=== PATIENT | male | born 1990 | race Caucasian/White ===

== ENCOUNTER 2017-10-31 05:55 | Emergency (ER) | payer SELFPAY ==
[2017-10-31] MEDS ORDERED: NA CHLORIDE 0.9% 1,000 ML ONE (06:29)
[2017-10-31 06:53] LABS: Bicarbonate 24 mEq/L (21-31); Glucose Level 102 mg/dL (65-120); Lipase 21 U/L (22-51); Potassium 4.4 mEq/L (3.6-5.0); Sodium Level 138 mEq/L (135-145)
[2017-10-31 06:55] LABS: Absolute Lymphocytes (CBC) 0.8 K/uL (0.7-4.9); Absolute Monocytes 1.2 K/uL (0.1-1.3); Absolute Neutrophil 15.7 K/uL (1.8-8.0); Basophils % 0.2 % (0-1.3); Eosinophils % 0.8 % (0-4.4); Hematocrit 49.5 % (39.6-49.0); Lymphocytes % 4.3 % (15.3-44.8); MCV 89.2 fL (80-100); MPV 8.2 fL (7.6-11.3); Monocytes % 6.9 % (3.3-12.3); RBC Red Blood Cell Count 5.54 M/uL (4.33-5.43)
[2017-10-31 06:59] LABS: ALT/SGPT 53 IU/L (10-60); AST/SGOT 33 IU/L (10-42); Albumin 4.7 g/dL (3.2-5.5); Alkaline Phosphatase 64 IU/L (42-121); BUN Blood Urea Nitrogen 16 mg/dL (6-20); Bilirubin Direct 0.1 mg/dL (0-0.2); Bilirubin Total 0.6 mg/dL (0.3-1.2)
--- NOTE | 2017-10-31 07:53 | RAD REPORT ---
AND EXAM DESCRIPTION: CT - Abdomen Pelvis W Contrast - 10/31/2017 7:31 am CLINICAL HISTORY: Abdominal pain with with vomiting for 1 week COMPARISON: 2014 TECHNIQUE: Computed axial tomography of the abdomen pelvis was obtained. 100 cc Isovue-300 was admin istered intravenously. Oral contrast was not requested which limits evaluation of bowel. All CT scans are performed using dose optimization technique as appropriate and may include automated exposure control or mA/KV adjustment according to patient size. FINDINGS: The liver, spleen, pancreas, adrenal and kidneys appear unremarkable. There is no evidence of diverticulitis. The appendix is normal. A right inguinal hernia contains fat Fluid is present within nondilated small bowel. The. A tiny umbilical hernia is suspected IMPRESSION: Fluid within nondilated small bowel may indicate an enteritis
[2017-10-31] MEDS ORDERED: DICYCLOMINE HCL 10 MG CAP ONE (08:12)
[2017-10-31] MEDS ORDERED: ONDANSETRON 4 MG/2 ML VIAL ONE (08:13)
--- NOTE | 2017-10-31 08:33 | EDPHYS ---
Physician Documentation [facility] Name: Piotr Guerrero Age: 26 yrs Sex: Male : 1990 Arrival Date: 10/31/2017 Time: 06:00 Bed 8 Private MD: ED Physician Clark Wynne HPI: 10/31 07:00 This 26 yrs old Male presents to ER via Ambulatory with complaints of pm1 Abdominal Pain and diarrhea. 07:00 The patient presents with abdominal pain. Onset: The symptoms/episode began/occurred pm1 today. 07:00 The symptoms do not radiate. Associated signs and symptoms: Pertinent positives: pm1 diarrhea, Pertinent negatives: chest pain, dysuria, fever, shortness of breath. The symptoms are described as crampy. Modifying factors: The symptoms are alleviated by nothing, the symptoms are aggravated by nothing. Severity of pain: in the emergency department the pain has improved. The patient has not experienced similar symptoms in the past. The patient has not recently seen a physician. Patient with nausea and vomiting 1 week ago after going to [employer] at friends house. Children got vomiting for 1 day. Patient fine until today and started having crampy abdominal pain with diarrhea x 1. Historical: - Allergies: 06:11 No Known Allergies; ao - Home Meds: 06:11 None [Active]; ao - PMHx: 06:11 None; ao - PSHx: 06:11 None; ao - Immunization history:: Adult Immunizations up to date. - Social history:: Smoking status: Patient uses tobacco products, smokes one-half pack cigarettes per day, Patient uses alcohol, occasionally. Patient/guardian denies using street drugs. - Ebola Screening: : Patient negative for fever greater than or equal to 101.5 degrees Fahrenheit, and additional compatible Ebola Virus Disease symptoms Patient denies exposure to infectious person Patient denies travel to an Ebola-affected area in the 21 days before illness onset. ROS: 07:00 Constitutional: Negative for fever, chills, and weight loss, Eyes: Negative for injury, pm1 pain, redness, and discharge, ENT: Negative for injury, pain, and discharge, Neck: Negative for injury, pain, and swelling, Cardiovascular: Negative for chest pain, palpitations, and edema, Respiratory: Negative for shortness of breath, cough, wheezing, and pleuritic chest pain. 07:00 Back: Negative for injury and pain, MS/Extremity: Negative for injury and deformity, Skin: Negative for injury, rash, and discoloration, Neuro: Negative for headache, weakness, numbness, tingling, and seizure. 07:00 Abdomen/GI: Positive for abdominal pain, diarrhea, Negative for nausea and vomiting. Exam: 07:00 Constitutional: This is a well developed, well nourished patient who is awake, alert, pm1 and in no acute distress. Head/Face: Normocephalic, atraumatic. Chest/axilla: Normal chest wall appearance and motion. Nontender with no deformity. No lesions are appreciated. Cardiovascular: Regular rate and rhythm with a normal S1 and S2. No gallops, murmurs, or rubs. Normal PMI, no JVD. No pulse deficits. Respiratory: Lungs have equal breath sounds bilaterally, clear to auscultation and percussion. No rales, rhonchi or wheezes noted. No increased work of breathing, no retractions or nasal flaring. 07:00 Back: No spinal tenderness. No costovertebral tenderness. Full range of motion. Skin: Warm, dry with normal turgor. Normal color with no rashes, no lesions, and no evidence of cellulitis. MS/ Extremity: Pulses equal, no cyanosis. Neurovascular intact. Full, normal range of motion. 07:00 Abdomen/GI: Inspection: abdomen appears normal, Bowel sounds: normal, Palpation: abdomen is soft and non-tender, mass, is not appreciated, rebound tenderness, is not appreciated. 07:00 Neuro: Orientation: is normal, Motor: is normal, moves all fours. Vital Signs: 06:10 BP 129 / 71; Pulse 102; Resp 18; Temp 98.1(TE); Pulse Ox 97% on R/A; Weight 129.27 kg ao (R); Height 6 ft. 3 in. (190.50 cm) (R); Pain 3/10; 07:05 BP 128 / 71; Pulse 72; Resp 18; Pulse Ox 100% ; sv 08:27 BP 154 / 75; Pulse 85; Resp 18; Pulse Ox 97% on R/A; ph 08:46 BP 136 / 73; Pulse 82; Resp 18; Pulse Ox 100% ; sv 06:10 Body Mass Index 35.62 (129.27 kg, 190.50 cm) ao MDM: 06:11 Patient medically screened. pm1 07:30 ED course: Patient refuses pain medication. pm1 08:31 Data reviewed: vital signs. Data interpreted: Pulse oximetry: on room air is 97 %. pm1 Interpretation: normal. Counseling: I had a detailed discussion with the patient and/or guardian regarding: the historical points, exam findings, and any diagnostic results supporting the discharge/admit diagnosis, lab results, radiology results, the need for outpatient follow up, to return to the emergency department if symptoms worsen or persist or if there are any questions or concerns that arise at home. 10/31 06:25 Order name: Basic Metabolic Panel; Complete Time: 07:08 pm1 10/31 06:25 Order name: CBC with Diff pm10/31 06:25 Order name: Creatinine for Radiology; Complete Time: 06:53 pm1 10/31 06:25 Order name: Hepatic Function; Complete Time: 07:08 pm10/31 06:25 Order name: Lipase; Complete Time: 07:08 pm1 10/31 06:25 Order name: Urine Microscopic Only pm10/31 06:25 Order name: IV Saline Lock; Complete Time: 06:32 pm10/31 06:25 Order name: Labs collected and sent; Complete Time: 06:32 pm10/31 06:25 Order name: Urine Dipstick-Ancillary (obtain specimen); Complete Time: 08:21 pm10/31 07:11 Order name: CT Abd/Pelvis - W/Contrast: IV contrast only; Complete Time: 07:54 pm1 10/31 08:38 Order name: Urine Dipstick--Ancillary (enter results) ag Administered Medications: 06:32 Drug: NS 0.9% 1000 ml Route: IV; Rate: 1000 ml; Site: right antecubital; mg2 08:22 Follow up: Response: No adverse reaction; IV Status: Completed infusion; IV Intake: ph 1000ml 08:21 Drug: Zofran 4 mg Route: IVP; Site: right antecubital; ph 08:49 Follow up: Response: No adverse reaction sv 08:21 Drug: Bentyl 20 mg Route: PO; ph 08:48 Follow up: Response: No adverse reaction sv Disposition: 19:41 Co-signature as Attending Physician, Clark Wynne MD. pkl Disposition: 10/31/17 08:33 Discharged to Home. Impression: Diarrhea, unspecified, Unspecified abdominal pain. - Condition is Stable. - Discharge Instructions: Abdominal Pain, Adult, Food Choices to Help Relieve Diarrhea, Adult, Diarrhea, Viral Gastroenteritis. - Prescriptions for Bentyl 20 mg Oral Tablet - take 1 tablet by ORAL route every 6 hours As needed; 20 tablet. Zofran 4 mg Oral Tablet - take 1 tablet by ORAL route every 12 hours As needed; 20 tablet. - Work release form, Medication Reconciliation Form, Thank You Letter, Antibiotic Education form. - Follow up: Emergency Department; When: As needed; Reason: Worsening of condition. Follow up: Private Physician; When: 2 - 3 days; Reason: Recheck today's complaints, Continuance of care, Re-evaluation by your physician. - Problem is new. - Symptoms have improved. Signatures: Dispatcher [employer] Moira Herr RN RN sv Lam, Pin, MD MD pkl Debra Pierce RN RN Rich Briceño RN Gera Birch NP ADVANCE AGENT pm1 Orville Holliday RN RN mg2 Corrections: (The following items were deleted from the chart) 08:47 08:33 10/31/2017 08:33 Discharged to Home. Impression: Diarrhea, unspecified; sv Unspecified abdominal pain. Condition is Stable. Forms are Medication Reconciliation Form, Thank You Letter, Antibiotic Education, Prescription Opioid Use. Follow up: Emergency Department; When: As needed; Reason: Worsening of condition. Follow up: Private Physician; When: 2 - 3 days; Reason: Recheck today's complaints, Continuance of care, Re-evaluation by your physician. Problem is new. Symptoms have improved. pm1
--- NOTE | 2017-10-31 08:33 | ER ---
Nurse's Notes [facility] Name: Piotr Guerrero Age: 26 yrs Sex: Male : 1990 Arrival Date: 10/31/2017 Time: 06:00 Bed 8 Private MD: Diagnosis: Diarrhea, unspecified;Unspecified abdominal pain Presentation: 10/31 06:07 Presenting complaint: Patient states: "I was vomiting and with abdominal pain a week ao ago. The problem resolved and came back on Monday. I had vomited about three time since then." Patient also reports diarrhea and chill this morning. Transition of care: patient was not received from another setting of care. Onset of symptoms is unknown. Risk Assessment: Do you want to hurt yourself or someone else? Patient reports no desire to harm self or others. Initial Sepsis Screen: Does the patient meet any 2 criteria? No. Patient's initial sepsis screen is negative. Does the patient have a suspected source of infection? No. Patient's initial sepsis screen is negative. Care prior to arrival: None. 06:07 Method Of Arrival: Ambulatory ao 06:07 Acuity: DRE 3 ao Triage Assessment: 06:11 General: Appears in no apparent distress. Behavior is calm, cooperative, appropriate ao for age. Pain: Complains of pain in abdomen. GI: Abdomen is non-distended. Historical: - Allergies: 06:11 No Known Allergies; ao - Home Meds: 06:11 None [Active]; ao - PMHx: 06:11 None; ao - PSHx: 06:11 None; ao - Immunization history:: Adult Immunizations up to date. - Social history:: Smoking status: Patient uses tobacco products, smokes one-half pack cigarettes per day, Patient uses alcohol, occasionally. Patient/guardian denies using street drugs. - Ebola Screening: : Patient negative for fever greater than or equal to 101.5 degrees Fahrenheit, and additional compatible Ebola Virus Disease symptoms Patient denies exposure to infectious person Patient denies travel to an Ebola-affected area in the 21 days before illness onset. Screenin:08 Abuse screen: Denies threats or abuse. Denies injuries from another. Nutritional mg2 screening: No deficits noted. Tuberculosis screening: No symptoms or risk factors identified. Fall Risk None identified. Assessment: 06:13 General: Appears in no apparent distress. comfortable. Pain: Complains of pain in mg2 abdomen Pain does not radiate. Pain currently is 3 out of 10 on a pain scale. Quality of pain is described as aching, Pain began this morning Is intermittent, Also complains of diarrhea. Neuro: Level of Consciousness is awake, alert, obeys commands, Oriented to person, place, time, situation. Cardiovascular: Capillary refill < 3 seconds Patient's skin is warm and dry. Respiratory: Airway is patent Respiratory effort is even, unlabored, Respiratory pattern is regular, symmetrical. GI: Reports lower abdominal pain, diarrhea. : No signs and/or symptoms were reported regarding the genitourinary system. EENT: No signs and/or symptoms were reported regarding the EENT system. Derm: Skin is intact, Skin is pink, warm \\T\\ dry. normal. Musculoskeletal: Circulation, motion, and sensation intact. 06:14 GI: ao 08:22 Reassessment: Patient appears in no apparent distress at this time. Patient and/or ph family updated on plan of care and expected duration. Pain level reassessed. Patient is alert, oriented x 3, equal unlabored respirations, skin warm/dry/pink. Pt resting quietly, reports nausea and abdominal pain, medication administered, see MAR, VSS, awaiting CT results. Vital Signs: 06:10 BP 129 / 71; Pulse 102; Resp 18; Temp 98.1(TE); Pulse Ox 97% on R/A; Weight 129.27 kg ao (R); Height 6 ft. 3 in. (190.50 cm) (R); Pain 3/10; 07:05 BP 128 / 71; Pulse 72; Resp 18; Pulse Ox 100% ; sv 08:27 BP 154 / 75; Pulse 85; Resp 18; Pulse Ox 97% on R/A; ph 08:46 BP 136 / 73; Pulse 82; Resp 18; Pulse Ox 100% ; sv 06:10 Body Mass Index 35.62 (129.27 kg, 190.50 cm) ao ED Course: 06:00 Patient arrived in ED. es 06:08 Orville Holliday, TE is Primary Nurse. mg2 06:08 Patient has correct armband on for positive identification. Pulse ox on. NIBP on. Noise mg2 minimized. 06:09 Gera Fisher NP is PHCP. pm1 06:09 Clark Wynne MD is Attending Physician. pm1 06:10 Triage completed. ao 06:12 Arm band placed on Patient notified of wait time. ao 06:31 Inserted saline lock: 20 gauge in right antecubital area, using aseptic technique. mg2 Blood collected. 07:32 CT Abd/Pelvis - W/Contrast: IV contrast only In Process Unspecified. EDMS 08:47 No provider procedures requiring assistance completed. IV discontinued, intact, sv bleeding controlled, No redness/swelling at site. Pressure dressing applied. Administered Medications: 06:32 Drug: NS 0.9% 1000 ml Route: IV; Rate: 1000 ml; Site: right antecubital; mg2 08:22 Follow up: Response: No adverse reaction; IV Status: Completed infusion; IV Intake: ph 1000ml 08:21 Drug: Zofran 4 mg Route: IVP; Site: right antecubital; ph 08:49 Follow up: Response: No adverse reaction sv 08:21 Drug: Bentyl 20 mg Route: PO; ph 08:48 Follow up: Response: No adverse reaction sv Intake: 08:22 IV: 1000ml; Total: 1000ml. ph Outcome: 08:33 Discharge ordered by . pm1 08:47 Discharged to home ambulatory. sv 08:47 Condition: stable 08:47 Discharge instructions given to patient, Instructed on discharge instructions, follow up and referral plans. medication usage, Demonstrated understanding of instructions, follow-up care, medications, Prescriptions given X 2. 08:47 Patient left the ED. sv Signatures: Dispatcher [employer] EDMoira Martinez RN RN sv Salyer, Edna es Hall, Patricia, RN RN Rich Briceño RN RN ao Marinas, Patrick, NP WORK CHECKER pm1 Orville Holilday RN RN mg2
[2017-10-31 08:51] VITALS: TEMP 98.1
[2017-10-31 08:54] LABS: Blood Morphology Comment NOT SEEN (NOT SEEN); Platelet Estimate ADEQ
[2017-10-31 08:55] VITALS: BP 136/73; O2SAT 100
[2017-10-31 10:08] LABS: Urine Blood TRACE (NEG); Urine Glucose NEGATIVE (NEG); Urine Protein NEGATIVE (NEG); Urine pH 5.5 (5.0-7.0)
[2017-10-31 10:10] LABS: Urine Bacteria <20 /HPF (NONE SEEN); Urine Culture Reflex Order NOT NEEDED; Urine RBC <5 /HPF (NONE SEEN)
== END 2017-10-31 08:47 | disposition home or self-care (01) ==
LOC: ER 05:55
DX: R19.7 Diarrhea, unspecified (principal); F17.210 Nicotine dependence, cigarettes, uncomplicated
CPT/HCPCS: 36415; 74177; 80048; 80076; 81003; 81015; 83690; 85025; 96361; 96374; 99284; J2405; J7030; Q9967

== ENCOUNTER 2019-02-28 07:26 | Emergency (ER) | payer SELFPAY ==
--- NOTE | 2019-02-28 08:11 | ER ---
Nurse's Notes [facility] Name: Piotr Guerrero Age: 28 yrs Sex: Male : 1990 Arrival Date: 02/28/2019 Time: 07:28 Bed 14 Private MD: Diagnosis: Encounter for screening, unspecified Presentation: 02/28 07:39 Presenting complaint: Patient states: Chronic back pain after injury in high school. ss Patient reports that they back pain became worse yesterday. Transition of care: patient was not received from another setting of care. Onset of symptoms was February 27, 2019. Risk Assessment: Do you want to hurt yourself or someone else? Patient reports no desire to harm self or others. Initial Sepsis Screen: Does the patient meet any 2 criteria? No. Patient's initial sepsis screen is negative. Does the patient have a suspected source of infection? No. Patient's initial sepsis screen is negative. Care prior to arrival: None. 07:39 Acuity: DRE 4 07:39 Method Of Arrival: Ambulatory ss Historical: - Allergies: 07:41 No Known Allergies; ss - Home Meds: 07:41 None [Active]; ss - PMHx: 07:41 chronic back pain; ss 08:08 Hypertension; gs - PSHx: 07:41 None; ss - Immunization history:: Adult Immunizations up to date. - Social history:: Smoking status: Patient uses tobacco products, chewing tobacco. - Ebola Screening: : Patient denies exposure to infectious person Patient denies travel to an Ebola-affected area in the 21 days before illness onset. Screenin:45 Abuse screen: Denies threats or abuse. Nutritional screening: No deficits noted. rb1 Tuberculosis screening: No symptoms or risk factors identified. Fall Risk None identified. Assessment: 07:45 General: Appears uncomfortable, Behavior is calm, cooperative. Pain: Complains of pain rb1 in left low back Pain does not radiate. Pain currently is 10 out of 10 on a pain scale. Pain began chronic pain from a football injury in high school. Neuro: Level of Consciousness is awake, alert, obeys commands, Oriented to person, place, time, situation. Cardiovascular: Capillary refill < 3 seconds is brisk in bilateral fingers. Respiratory: Airway is patent Respiratory effort is even, unlabored, Respiratory pattern is regular, symmetrical. GI: No signs and/or symptoms were reported involving the gastrointestinal system. : No signs and/or symptoms were reported regarding the genitourinary system. Derm: Skin is pink, warm \T\ dry. Musculoskeletal: Range of motion: intact in all extremities. Vital Signs: 07:38 BP 138 / 77; Pulse 79; Resp 14; Temp 98.4(TE); Pulse Ox 100% on R/A; Weight 104.33 kg; Height 6 ft. 3 in. (190.50 cm); Pain 5/10; 07:38 Body Mass Index 28.75 (104.33 kg, 190.50 cm) ED Course: 07:28 Patient arrived in ED. as 07:37 Seth Phelps MD is Attending Physician. 07:38 Arm band placed on right wrist. 07:40 Triage completed. 07:45 Patient has correct armband on for positive identification. Bed in low position. Call rb1 light in reach. Side rails up X 1. Pulse ox on. NIBP on. 08:01 Evie Chilel RN is Primary Nurse. rb1 08:06 No provider procedures requiring assistance completed. Patient did not have IV access rb1 during this emergency room visit. Administered Medications: No medications were administered Outcome: 08:06 Medical screen evaluation completed per provider. Patient declined treatment. rb1 08:06 Condition: stable 08:06 Instructed on medical screen 08:09 Discharge ordered by . 08:12 Patient left the ED. rb1 Signatures: Aster Gallo Shelby, RN RN Evie Chilel RN RN [facility] Seth Phelps MD MD
--- NOTE | 2019-02-28 08:11 | EDPHYS ---
Physician Documentation [facility] Name: Piotr Guerrero Age: 28 yrs Sex: Male : 1990 Arrival Date: 02/28/2019 Time: 07:28 Bed 14 Private MD: ED Physician Seth Phelps HPI: 02/28 08:07 This 28 yrs old Male presents to ER via Ambulatory with complaints of Back gs Pain. 08:07 The patient presents with pain that is acute. The symptoms are located in the low back. gs Onset: The symptoms/episode began/occurred 1 week(s) ago. The pain does not radiate. Associated signs and symptoms: Pertinent negatives: dysuria, incontinence, numbness, tingling, urinary retention. Severity of symptoms: At their worst the symptoms were moderate, in the emergency department the symptoms are unchanged. The patient has experienced similar episodes in the past, multiple times. Historical: - Allergies: 07:41 No Known Allergies; ss - Home Meds: 07:41 None [Active]; ss - PMHx: 07:41 chronic back pain; ss 08:08 Hypertension; gs - PSHx: 07:41 None; ss - Immunization history:: Adult Immunizations up to date. - Social history:: Smoking status: Patient uses tobacco products, chewing tobacco. - Ebola Screening: : Patient denies exposure to infectious person Patient denies travel to an Ebola-affected area in the 21 days before illness onset. ROS: 08:08 All other systems are negative. gs Exam: 08:08 Head/Face: Normocephalic, atraumatic. Eyes: Pupils equal round and reactive to light, gs extra-ocular motions intact. Lids and lashes normal. Conjunctiva and sclera are non-icteric and not injected. Cornea within normal limits. Periorbital areas with no swelling, redness, or edema. ENT: Nares patent. No nasal discharge, no septal abnormalities noted. Tympanic membranes are normal and external auditory canals are clear. Oropharynx with no redness, swelling, or masses, exudates, or evidence of obstruction, uvula midline. Mucous membranes moist. Neck: Trachea midline, no thyromegaly or masses palpated, and no cervical lymphadenopathy. Supple, full range of motion without nuchal rigidity, or vertebral point tenderness. No Meningismus. Chest/axilla: Normal chest wall appearance and motion. Nontender with no deformity. No lesions are appreciated. Cardiovascular: Regular rate and rhythm with a normal S1 and S2. No gallops, murmurs, or rubs. Normal PMI, no JVD. No pulse deficits. Respiratory: Lungs have equal breath sounds bilaterally, clear to auscultation and percussion. No rales, rhonchi or wheezes noted. No increased work of breathing, no retractions or nasal flaring. Abdomen/GI: Soft, non-tender, with normal bowel sounds. No distension or tympany. No guarding or rebound. No evidence of tenderness throughout. Back: No spinal tenderness. No costovertebral tenderness. Full range of motion. Skin: Warm, dry with normal turgor. Normal color with no rashes, no lesions, and no evidence of cellulitis. MS/ Extremity: Pulses equal, no cyanosis. Neurovascular intact. Full, normal range of motion. 08:08 Constitutional: The patient appears alert, awake. 08:08 Neuro: Orientation: is normal, Cranial nerves: grossly normal, Cerebellar function: is grossly normal, Motor: no acute changes, strength is 5/5 in all extremities, Sensation: pin prick testing is normal, Deep tendon reflexes are 2+ (normal) in the right patellar and left patellar. Vital Signs: 07:38 BP 138 / 77; Pulse 79; Resp 14; Temp 98.4(TE); Pulse Ox 100% on R/A; Weight 104.33 kg; ss Height 6 ft. 3 in. (190.50 cm); Pain 5/10; 07:38 Body Mass Index 28.75 (104.33 kg, 190.50 cm) MDM: 08:04 Patient medically screened. 08:08 Differential diagnosis: Joint Injury Ligament Injury ruptured disc. Data reviewed: vital signs, nurses notes. Counseling: I had a detailed discussion with the patient and/or guardian regarding: the need for outpatient follow up. Response to treatment: There is no appreciated change of the patient's symptoms at this time. Administered Medications: No medications were administered Disposition: 02/28/19 08:09 Discharged to Home. Impression: Encounter for screening, unspecified. - Condition is Stable. - Medication Reconciliation Form, Thank You Letter, Antibiotic Education, Prescription Opioid Use form. Signatures: Sabina Bonner, RN RN ss Evie Chilel, RN RN rb1 Seth Phelps MD MD gs Corrections: (The following items were deleted from the chart) 08:12 08:09 02/28/2019 08:09 Discharged to Home. Impression: Encounter for screening, rb1 unspecified. Condition is Stable. Forms are Medication Reconciliation Form, Thank You Letter, Antibiotic Education, Prescription Opioid Use. gs
[2019-02-28 08:18] VITALS: BP 138/77; TEMP 98.4; O2SAT 100
== END 2019-02-28 08:12 | disposition home or self-care (01) ==
LOC: ER 07:26
DX: Z13.9 Encounter for screening, unspecified (principal); I10 Essential (primary) hypertension; F17.220 Nicotine dependence, chewing tobacco, uncomplicated
CPT/HCPCS: 99283

== ENCOUNTER 2019-07-08 18:48 | Emergency (ER) | payer SELFPAY ==
[2019-07-08 20:15] LABS: Urine Blood NEGATIVE (NEG); Urine Glucose NEGATIVE (NEG); Urine Protein NEGATIVE (NEG); Urine Specific Gravity 1.025 (1.005-1.030)
--- NOTE | 2019-07-08 20:24 | RAD REPORT ---
EXAM DESCRIPTION: CT - Abdomen Pelvis Wo Contrast - 07/08/2019 8:12 pm CLINICAL HISTORY: Abdominal pain. KIDNEY STONES COMPARISON: Abdomen Pelvis W Contrast dated 10/31/2017 TECHNIQUE: CT imaging of the abdomen and pelvis was performed without contrast. Solid organ, bowel a nd vascular assessment is limited due to lack of IV and oral contrast. All CT scans are performed using dose optimization technique as appropriate and may include automated exposure control or mA/KV adjustment according to patient size. FINDINGS: The lower lung art are clear. The liver, spleen, pancreas, adrenal glands and kidneys are within normal limits for a limited non-co ntrast examination. No bowel obstruction, free air, free fluid or abscess. The appendix is normal. The osseous structures are within normal limits.Small fat containing right inguinal hernia. IMPRESSION: No acute intra-abdominal or pelvic findings. A limited non-contrast examination was performed as detailed.
[2019-07-08 20:33] LABS: Absolute Lymphocytes (CBC) 2.9 K/uL (0.7-4.9); Basophils % 0.3 % (0-1.3); Lymphocytes % 29.2 % (15.3-44.8); MPV 7.7 fL (7.6-11.3); RBC Red Blood Cell Count 4.93 M/uL (4.33-5.43)
[2019-07-08 20:47] LABS: ALT/SGPT 31 U/L (12-78); AST/SGOT 18 U/L (15-37); Albumin 4.3 g/dL (3.4-5.0); Alkaline Phosphatase 63 U/L (45-117); BUN Blood Urea Nitrogen 14 mg/dL (7-18); Bicarbonate 29 mmol/L (21-32); Bilirubin Direct 0.1 mg/dL (0-0.2); Bilirubin Total 0.4 mg/dL (0.2-1.0); Glucose Level 87 mg/dL (74-106); Lipase 70 U/L (73-393); Potassium 3.9 mmol/L (3.5-5.1); Protein, Total 7.8 g/dL (6.4-8.2); Sodium Level 142 mmol/L (136-145)
--- NOTE | 2019-07-08 21:09 | EDPHYS ---
Physician Documentation [facility] Name: Piotr Guerrero Age: 28 yrs Sex: Male : 1990 Arrival Date: 07/08/2019 Time: 18:50 Bed 30 Private MD: ED Physician Juliano Dunham HPI: 07/08 21:06 This 28 yrs old Male presents to ER via Ambulatory with complaints of Hip ma2 Pain, Side Pain. 21:06 left flank pain, he does not want pain rx in er . The complaints affect the back. ma2 Associated signs and symptoms: Pertinent negatives: altered mental status, chest pain, fever, nausea. Severity of symptoms: At their worst the symptoms were very mild, in the emergency department the symptoms are unchanged. The patient has not experienced similar symptoms in the past. Historical: - Home Meds: 19:07 None [Active]; ea - PMHx: 19:07 chronic back pain; Hypertension; ea - PSHx: 19:07 Tonsillectomy; ea - Immunization history:: Adult Immunizations up to date. - Coronavirus screen:: The patient has NOT traveled to [place] in the past 14 days. - Social history:: Patient/guardian denies using alcohol, street drugs, The patient lives with family, Smoking status: Smoking status: Patient denies any tobacco usage or history of. - Family history:: not pertinent. - Ebola Screening: : No symptoms or risks identified at this time. ROS: 21:06 Constitutional: Negative for fever, chills, and weight loss. ma2 21:06 All other systems are negative. Exam: 21:06 Constitutional: This is a well developed, well nourished patient who is awake, alert, ma2 and in no acute distress. Chest/axilla: Normal chest wall appearance and motion. Nontender with no deformity. No lesions are appreciated. Cardiovascular: Regular rate and rhythm with a normal S1 and S2. No gallops, murmurs, or rubs. Normal PMI, no JVD. No pulse deficits. Respiratory: Lungs have equal breath sounds bilaterally, clear to auscultation and percussion. No rales, rhonchi or wheezes noted. No increased work of breathing, no retractions or nasal flaring. Abdomen/GI: Soft, non-tender, with normal bowel sounds. No distension or tympany. No guarding or rebound. No evidence of tenderness throughout. Back: No spinal tenderness. No costovertebral tenderness. Full range of motion. Skin: Warm, dry with normal turgor. Normal color with no rashes, no lesions, and no evidence of cellulitis. MS/ Extremity: Pulses equal, no cyanosis. Neurovascular intact. Full, normal range of motion. Neuro: Awake and alert, GCS 15, oriented to person, place, time, and situation. Cranial nerves II-XII grossly intact. Motor strength 5/5 in all extremities. Sensory grossly intact. Cerebellar exam normal. Normal gait. Vital Signs: 19:07 BP 144 / 97; Pulse 76; Resp 18; Temp 98(TE); Pulse Ox 98% ; Weight 103.87 kg; Height 6 ea ft. 3 in. (190.50 cm); Pain 8/10; 20:21 BP 127 / 76; Pulse 67; Resp 16 S; Pulse Ox 98% on R/A; ca1 20:49 BP 128 / 71; Pulse 58; Resp 16 S; Pulse Ox 98% on R/A; ca1 21:27 BP 138 / 92; Pulse 81; Resp 16 S; Pulse Ox 99% on R/A; ca1 19:07 Body Mass Index 28.62 (103.87 kg, 190.50 cm) ea MDM: 19:34 Patient medically screened. ma2 21:06 Differential diagnosis: bursitis, arthritis, strain. Data reviewed: vital signs, nurses ma2 notes. Counseling: I had a detailed discussion with the patient and/or guardian regarding: the historical points, exam findings, and any diagnostic results supporting the discharge/admit diagnosis, the presence of at least one elevated blood pressure reading (>120/80) during this emergency department visit, the need for outpatient follow up. Response to treatment: There is no appreciated change of the patient's symptoms at this time. 07/08 19:49 Order name: Urine Dipstick--Ancillary (enter results) vt 07/08 19:54 Order name: Basic Metabolic Panel; Complete Time: 20:55 [facility] 07/08 19:54 Order name: CBC with Diff [facility] 07/08 19:54 Order name: Creatinine for Radiology; Complete Time: 20:55 [facility] 07/08 19:54 Order name: Hepatic Function; Complete Time: 20:55 [facility] 07/08 19:54 Order name: Lipase; Complete Time: 20:55 tn2 07/08 19:54 Order name: IV Saline Lock; Complete Time: 20:25 [facility] 07/08 19:54 Order name: Labs collected and sent; Complete Time: 20:25 [facility] 07/08 19:54 Order name: CT Abd/Pelvis - Without Contrast [facility] 07/08 20:17 Order name: Urine Dipstick-Ancillary; Complete Time: 20:55 [facility] 07/08 20:40 Order name: CBC with Automated Diff [facility] 07/08 20:53 Order name: CT; Complete Time: 20:55 [facility] Administered Medications: No medications were administered Disposition: 07/08/19 21:07 Discharged to Home. Impression: Low back pain. - Condition is Stable. - Discharge Instructions: Back Pain, Adult. - Medication Reconciliation Form, Thank You Letter, Antibiotic Education, Prescription Opioid Use form. - Follow up: Private Physician; When: Tomorrow; Reason: Continuance of care. Signatures: Dispatcher [employer] Deborah Crocker, RN RN Juliano Robison MD MD ma2 Naty Bee RN RN ca1 Corrections: (The following items were deleted from the chart) 21:28 21:07 07/08/2019 21:07 Discharged to Home. Impression: Low back pain. Condition is ca1 Stable. Forms are Medication Reconciliation Form, Thank You Letter, Antibiotic Education, Prescription Opioid Use. Follow up: Private Physician; When: Tomorrow; Reason: Continuance of care. ma2
--- NOTE | 2019-07-08 21:09 | ER ---
Nurse's Notes [facility] Name: Piotr Guerrero Age: 28 yrs Sex: Male : 1990 Arrival Date: 07/08/2019 Time: 18:50 Bed 30 Private MD: Diagnosis: Low back pain Presentation: 07/08 19:05 Presenting complaint: Patient states: Reports left hip pain since denies ea injury. Reports he thinks he might have a UTI. Transition of care: patient was not received from another setting of care. Onset of symptoms was July 08, 2019. Risk Assessment: Do you want to hurt yourself or someone else? Patient reports no desire to harm self or others. Initial Sepsis Screen: Does the patient meet any 2 criteria? No. Patient's initial sepsis screen is negative. Does the patient have a suspected source of infection? No. Patient's initial sepsis screen is negative. Care prior to arrival: None. 19:05 Method Of Arrival: Ambulatory ea 19:05 Acuity: DRE 3 ea Historical: - Home Meds: 19:07 None [Active]; ea - PMHx: 19:07 chronic back pain; Hypertension; ea - PSHx: 19:07 Tonsillectomy; ea - Immunization history:: Adult Immunizations up to date. - Coronavirus screen:: The patient has NOT traveled to [place] in the past 14 days. - Social history:: Patient/guardian denies using alcohol, street drugs, The patient lives with family, Smoking status: Smoking status: Patient denies any tobacco usage or history of. - Family history:: not pertinent. - Ebola Screening: : No symptoms or risks identified at this time. Screenin:06 Abuse screen: Denies threats or abuse. Nutritional screening: No deficits noted. ea Tuberculosis screening: No symptoms or risk factors identified. Fall Risk None identified. Assessment: 19:39 General: Appears in no apparent distress. comfortable, Behavior is calm, cooperative, ca1 appropriate for age. Pain: Complains of pain in posterior aspect of right lateral abdomen and left lower quadrant Pain does not radiate. Pain currently is 7 out of 10 on a pain scale. Is intermittent. Neuro: Level of Consciousness is awake, alert, obeys commands, Oriented to person, place, time, situation, Appropriate for age. Cardiovascular: Heart tones S1 S2 present Capillary refill < 3 seconds Patient's skin is warm and dry. Respiratory: Airway is patent Respiratory effort is even, unlabored, Respiratory pattern is regular, symmetrical, Breath sounds are clear bilaterally. GI: Abdomen is flat, non-distended, Bowel sounds present X 4 quads. Abd is soft and non tender X 4 quads. EENT: No signs and/or symptoms were reported regarding the EENT system. Derm: Skin is intact, is healthy with good turgor, Skin is pink, warm \T\ dry. Musculoskeletal: Circulation, motion, and sensation intact. Capillary refill < 3 seconds. 19:48 : Urine is clear, Reports burning with urination, on Monday but not today. ca1 20:21 Reassessment: Patient appears in no apparent distress at this time. Patient and/or ca1 family updated on plan of care and expected duration. Pain level reassessed. Patient is alert, oriented x 3, equal unlabored respirations, skin warm/dry/pink. 20:49 Reassessment: Patient appears in no apparent distress at this time. Patient and/or ca1 family updated on plan of care and expected duration. Pain level reassessed. Patient is alert, oriented x 3, equal unlabored respirations, skin warm/dry/pink. 21:27 Reassessment: Patient appears in no apparent distress at this time. Patient is alert, ca1 oriented x 3, equal unlabored respirations, skin warm/dry/pink. Vital Signs: 19:07 BP 144 / 97; Pulse 76; Resp 18; Temp 98(TE); Pulse Ox 98% ; Weight 103.87 kg; Height 6 ea ft. 3 in. (190.50 cm); Pain 8/10; 20:21 BP 127 / 76; Pulse 67; Resp 16 S; Pulse Ox 98% on R/A; ca1 20:49 BP 128 / 71; Pulse 58; Resp 16 S; Pulse Ox 98% on R/A; ca1 21:27 BP 138 / 92; Pulse 81; Resp 16 S; Pulse Ox 99% on R/A; ca1 19:07 Body Mass Index 28.62 (103.87 kg, 190.50 cm) ea ED Course: 18:50 Patient arrived in ED. ag5 19:06 Triage completed. ea 19:06 Patient has correct armband on for positive identification. Bed in low position. Call ea light in reach. Side rails up X2. 19:34 Juliano Dunham MD is Attending Physician. ma2 19:37 Naty Bee, RN is Primary Nurse. ca1 19:39 No provider procedures requiring assistance completed. ca1 19:49 Arm band placed on. ca1 20:21 Pulse ox on. NIBP on. ca1 20:21 Initial lab(s) drawn, by mo, sent to lab. Inserted saline lock: 20 gauge in right ca1 antecubital area, using aseptic technique. Blood collected. 21:27 IV discontinued, intact, bleeding controlled, No redness/swelling at site. Pressure ca1 dressing applied. Administered Medications: No medications were administered Outcome: 21:07 Discharge ordered by . ma 21:27 Discharged to home ambulatory. ca1 21: Condition: stable 21:27 Discharge instructions given to patient, Instructed on discharge instructions, follow up and referral plans. Demonstrated understanding of instructions, follow-up care. 21:28 Patient left the ED. ca1 Signatures: Deborah Laura RN RN ea Alzahri, Mohammad, MD MD [facility] Naty Bee RN RN [facility] Sanket Bill ag5 Corrections: (The following items were deleted from the chart) 19:09 19:05 Presenting complaint: Patient states: Reports left hip pain since denies ea injury ea 19:41 19:39 : No signs and/or symptoms were reported regarding the genitourinary system. ca1ca1 19:49 19:39 Pain: Complains of pain in left iliac crest and left hip Pain does not radiate. ca1 Pain currently is 7 out of 10 on a pain scale. ca1
[2019-07-09 00:24] VITALS: TEMP 98
[2019-07-09 00:36] VITALS: BP 138/92; O2SAT 99
== END 2019-07-08 21:28 | disposition home or self-care (01) ==
LOC: ER 18:48
DX: M54.5 Low back pain (principal); I10 Essential (primary) hypertension
CPT/HCPCS: 36415; 74176; 80048; 80076; 81003; 83690; 85025; 99284

== ENCOUNTER 2020-05-19 05:28 | Emergency (ER) | payer SELFPAY ==
[2020-05-19] MEDS ORDERED: NA CHLORIDE 0.9% 1,000 ML ONE (06:23)
[2020-05-19 06:39] LABS: Absolute Lymphocytes (CBC) 2.7 K/uL (0.7-4.9); Basophils % 0.7 % (0-1.3); Hematocrit 45.6 % (39.6-49.0); Lymphocytes % 31.2 % (15.3-44.8); MPV 7.9 fL (7.6-11.3); RBC Red Blood Cell Count 5.12 M/uL (4.33-5.43)
[2020-05-19 06:50] LABS: ALT/SGPT 53 U/L (12-78); AST/SGOT 22 U/L (15-37); Albumin 4.1 g/dL (3.4-5.0); Alkaline Phosphatase 71 U/L (45-117); BUN Blood Urea Nitrogen 17 mg/dL (7-18); Bicarbonate 25 mmol/L (21-32); Bilirubin Direct 0.1 mg/dL (0-0.2); Bilirubin Total 0.5 mg/dL (0.2-1.0); C-Reactive Protein 4.58 mg/L (<3.00); Glucose Level 96 mg/dL (74-106); Magnesium 2.5 mg/dL (1.8-2.4); Potassium 3.8 mmol/L (3.5-5.1); Protein, Total 7.7 g/dL (6.4-8.2); Sodium Level 139 mmol/L (136-145); Troponin (Emerg Dept Use Only) < 0.02 ng/mL (0.0-0.045)
--- NOTE | 2020-05-19 07:47 | ER ---
Nurse's Notes [facility] Name: Piotr Guerrero Age: 29 yrs Sex: Male : 1990 Arrival Date: 05/19/2020 Time: 05: Bed 14 Private MD: Diagnosis: Paresthesia of skin Presentation: 05/19 05:39 Chief complaint: Patient states: i was just playing video games yesterday when my right mg2 knee start to feel numb and it radiates down to my ankle. denies pain. Coronavirus screen: Client denies travel out of the [place] in the last 14 days. At this time, the client does not indicate any symptoms associated with coronavirus-19. Ebola Screen: No symptoms or risks identified at this time. Initial Sepsis Screen: Does the patient meet any 2 criteria? No. Patient's initial sepsis screen is negative. Does the patient have a suspected source of infection? No. Patient's initial sepsis screen is negative. Risk Assessment: Do you want to hurt yourself or someone else? Patient reports no desire to harm self or others. Onset of symptoms was May 18, 2020. 05:39 Method Of Arrival: Ambulatory mg2 05:39 Acuity: DRE 4 mg2 Triage Assessment: 05:42 General: Appears in no apparent distress. comfortable, Behavior is calm, cooperative. mg2 Pain: Denies pain. EENT: No deficits noted. Neuro: Level of Consciousness is awake, alert, obeys commands, Oriented to person, place, time, situation. Cardiovascular: Capillary refill < 3 seconds Patient's skin is warm and dry. Respiratory: Airway is patent Respiratory effort is even, unlabored, Respiratory pattern is regular, symmetrical. GI: No signs and/or symptoms were reported involving the gastrointestinal system. : No signs and/or symptoms were reported regarding the genitourinary system. Derm: Skin is intact, is healthy with good turgor, Skin is pink, warm \T\ dry. normal. Musculoskeletal: Circulation, motion, and sensation intact. Capillary refill < 3 seconds. Historical: - Allergies: 05:42 Mustard; mg2 05:42 Latex, Natural Rubber; mg2 - Home Meds: 05:42 None [Active]; mg2 - PMHx: 05:42 chronic back pain; Hypertension; mg2 - PSHx: 05:42 right knee sx; mg2 - Immunization history:: Flu vaccine status is unknown. - Social history:: Smoking status: Patient reports the use of cigarette tobacco products, denies chronic smoking, but will smoke occasionally, Patient uses alcohol, occasionally. Patient/guardian denies using street drugs, IV drugs. - Family history:: not pertinent. Screenin:43 Abuse screen: Denies threats or abuse. Denies injuries from another. Nutritional mg2 screening: No deficits noted. Tuberculosis screening: No symptoms or risk factors identified. Fall Risk None identified. Assessment: 05:43 General: see triage assessment. mg2 06:20 Reassessment: Patient appears in no apparent distress at this time. Patient and/or jb4 family updated on plan of care and expected duration. Pain level reassessed. Patient is alert, oriented x 3, equal unlabored respirations, skin warm/dry/pink. PT to CT. Vital Signs: 05:39 BP 139 / 91; Pulse 69; Resp 18; Temp 98.2; Pulse Ox 100% on R/A; Weight 115.67 kg; mg2 Height 6 ft. 3 in. (190.50 cm); Pain 0/10; 05:39 Body Mass Index 31.87 (115.67 kg, 190.50 cm) mg2 ED Course: 05:29 Patient arrived in ED. cl3 05:35 Selvin Henry MD is Attending Physician. jagdeep 05:41 Triage completed. mg2 05:42 Arm band placed on. mg2 05:43 Patient has correct armband on for positive identification. mg2 05:43 No provider procedures requiring assistance completed. mg2 05:52 Miguel Angel Raza, RN is Primary Nurse. jb4 06:35 CT Head C Spine In Process Unspecified. EDMS 07:10 XRAY Chest (1 view) In Process Unspecified. EDMS 07:33 Lumbar Spine (3 Views) XRAY In Process Unspecified. EDMS 07:47 Jorge Oglesby MD is Referral Physician. jagdeep 08:31 IV discontinued, intact, bleeding controlled, No redness/swelling at site. Pressure jl7 dressing applied. Administered Medications: 06:17 Drug: NS 0.9% 1000 ml Route: IV; Rate: 1 bolus; Site: right antecubital; jb4 07:43 Drug: Aspirin 162 mg Route: PO; dm5 07:45 Not Given (Duplicate Order; other route used): foLIC Acid 1 mg IVPB once dm5 07:46 Drug: foLIC Acid 1 mg Route: PO; dm5 Outcome: 07:47 Discharge ordered by . jagdeep 08:30 Discharged to home ambulatory. yolanda 08:30 Condition: stable 08:30 Discharge instructions given to patient, Instructed on discharge instructions, follow up and referral plans. medication usage, Demonstrated understanding of instructions, follow-up care, medications, Prescriptions given X 1. 08:31 Patient left the ED. jl7 Signatures: Dispatcher [employer] EDCaitlin Toribio, RN RN Selvin Byrd MD MD cha Bryson, James, RN RN jb4 Flakito Goodwin RN RN jl7 Orville Holliday, RN RN Evelina Nath3
--- NOTE | 2020-05-19 07:47 | EDPHYS ---
Physician Documentation [facility] Name: Piotr Guerrero Age: 29 yrs Sex: Male : 1990 Arrival Date: 05/19/2020 Time: 05:29 Bed 14 Private MD: JEAN Physician Selvin Henry HPI: 05/19 06:00 This 29 yrs old Male presents to ER via Ambulatory with complaints of Knee jagdeep Numbness. 06:00 The patient presents with numbness of mott. The complaints affect the right mott. jagdeep Context: The problem was sustained at an unknown site, resulted from an unknown cause. Onset: The symptoms/episode began/occurred 1 day(s) ago. Modifying factors: The symptoms are alleviated by nothing. the symptoms are aggravated by nothing. Associated signs and symptoms: The patient has no apparent associated signs or symptoms. Treatment prior to arrival includes: no previous treatment. Severity of symptoms: At their worst the symptoms were mild, in the emergency department the symptoms are unchanged. The patient has not experienced similar symptoms in the past. Historical: - Allergies: 05:42 Mustard; mg2 05:42 Latex, Natural Rubber; mg2 - Home Meds: 05:42 None [Active]; mg2 - PMHx: 05:42 chronic back pain; Hypertension; mg2 - PSHx: 05:42 right knee sx; mg2 - Immunization history:: Flu vaccine status is unknown. - Social history:: Smoking status: Patient reports the use of cigarette tobacco products, denies chronic smoking, but will smoke occasionally, Patient uses alcohol, occasionally. Patient/guardian denies using street drugs, IV drugs. - Family history:: not pertinent. ROS: 06:00 Constitutional: Negative for fever, chills, and weight loss, Eyes: Negative for injury, jagdeep pain, redness, and discharge, ENT: Negative for injury, pain, and discharge, Neck: Negative for injury, pain, and swelling, Cardiovascular: Negative for chest pain, palpitations, and edema, Respiratory: Negative for shortness of breath, cough, wheezing, and pleuritic chest pain, Abdomen/GI: Negative for abdominal pain, nausea, vomiting, diarrhea, and constipation, Back: Negative for injury and pain, : Negative for injury, bleeding, discharge, and swelling, Skin: Negative for injury, rash, and discoloration, Neuro: Negative for headache, weakness, numbness, tingling, and seizure, Psych: Negative for depression, anxiety, suicide ideation, homicidal ideation, and hallucinations, Allergy/Immunology: Negative for hives, rash, and allergies, Endocrine: Negative for neck swelling, polydipsia, polyuria, polyphagia, and marked weight changes, Hematologic/Lymphatic: Negative for swollen nodes, abnormal bleeding, and unusual bruising. 06:00 MS/extremity: Positive for paresthesias, of the right mott. Exam: 06:00 Constitutional: This is a well developed, well nourished patient who is awake, alert, jagdeep and in no acute distress. Head/Face: Normocephalic, atraumatic. Eyes: Pupils equal round and reactive to light, extra-ocular motions intact. Lids and lashes normal. Conjunctiva and sclera are non-icteric and not injected. Cornea within normal limits. Periorbital areas with no swelling, redness, or edema. ENT: Nares patent. No nasal discharge, no septal abnormalities noted. Tympanic membranes are normal and external auditory canals are clear. Oropharynx with no redness, swelling, or masses, exudates, or evidence of obstruction, uvula midline. Mucous membranes moist. Neck: Trachea midline, no thyromegaly or masses palpated, and no cervical lymphadenopathy. Supple, full range of motion without nuchal rigidity, or vertebral point tenderness. No Meningismus. Chest/axilla: Normal chest wall appearance and motion. Nontender with no deformity. No lesions are appreciated. Cardiovascular: Regular rate and rhythm with a normal S1 and S2. No gallops, murmurs, or rubs. Normal PMI, no JVD. No pulse deficits. Respiratory: Lungs have equal breath sounds bilaterally, clear to auscultation and percussion. No rales, rhonchi or wheezes noted. No increased work of breathing, no retractions or nasal flaring. Abdomen/GI: Soft, non-tender, with normal bowel sounds. No distension or tympany. No guarding or rebound. No evidence of tenderness throughout. Back: No spinal tenderness. No costovertebral tenderness. Full range of motion. Male : Normal genitalia with no discharge or lesions. Skin: Warm, dry with normal turgor. Normal color with no rashes, no lesions, and no evidence of cellulitis. MS/ Extremity: Pulses equal, no cyanosis. Neurovascular intact. Full, normal range of motion. Neuro: Awake and alert, GCS 15, oriented to person, place, time, and situation. Cranial nerves II-XII grossly intact. Motor strength 5/5 in all extremities. Sensory grossly intact. Cerebellar exam normal. Normal gait. Psych: Awake, alert, with orientation to person, place and time. Behavior, mood, and affect are within normal limits. 06:00 Musculoskeletal/extremity: the right mott numbness, Compartment Syndrome exam of affected extremity: is normal. Joints: All joints appear normal with full range of motion. Weight bearing: able to fully bear weight, without difficulty, DVT Exam: No signs of deep vein thrombosis. no pain, no swelling, no tenderness, negative Homans' sign noted on exam, no appreciated bluish discoloration, no erythema, no increased warmth. 06:54 ECG was reviewed by the Attending Physician. jagdeep Vital Signs: 05:39 BP 139 / 91; Pulse 69; Resp 18; Temp 98.2; Pulse Ox 100% on R/A; Weight 115.67 kg; mg2 Height 6 ft. 3 in. (190.50 cm); Pain 0/10; 05:39 Body Mass Index 31.87 (115.67 kg, 190.50 cm) mg2 MDM: 05:35 Patient medically screened. jagdeep 06:03 Differential diagnosis: contusion. Data reviewed: vital signs, nurses notes, lab test jagdeep result(s), EKG, radiologic studies, CT scan, plain films. Data interpreted: poultry cleaner: rate is 69 beats/min, rhythm is regular, Pulse oximetry: on room air. Test interpretation: by ED physician or midlevel provider: ECG, plain radiologic studies. Counseling: I had a detailed discussion with the patient and/or guardian regarding: the historical points, exam findings, and any diagnostic results supporting the discharge/admit diagnosis, lab results, radiology results, the need for outpatient follow up, for definitive care, a neurologist. 07:16 ED course: discussed results, will give follow up with dr salvador, return to the er if jagdeep symptoms worsen. 05/19 05:59 Order name: Basic Metabolic Panel; Complete Time: 07:07 jagdeep 05/19 05:59 Order name: CBC with Diff; Complete Time: 07:45 jagdeep 05/19 05:59 Order name: LFT's; Complete Time: 07:07 [facility] 05/19 05:59 Order name: Magnesium; Complete Time: 07:07 [facility] 05/19 05:59 Order name: Troponin (emerg Dept Use Only); Complete Time: 07:07 [facility] 05/19 05:59 Order name: Sed Rate; Complete Time: 07:45 [facility] 05/19 05:59 Order name: XRAY Chest (1 view) [facility] 05/19 05:59 Order name: CRP; Complete Time: 07:07 [facility] 05/19 05:59 Order name: CT Head C Spine [facility] 05/19 06:27 Order name: Lumbar Spine (3 Views) XRAY [facility] 05/19 05:59 Order name: EKG; Complete Time: 06:00 [facility] 05/19 05:59 Order name: Cardiac monitoring; Complete Time: 06:21 [facility] 05/19 05:59 Order name: EKG - Nurse/Tech; Complete Time: 06:49 [facility] 05/19 05:59 Order name: IV Saline Lock; Complete Time: 06:21 [facility] 05/19 05:59 Order name: Labs collected and sent; Complete Time: 06:20 [facility] 05/19 05:59 Order name: O2 Per Protocol; Complete Time: 06:20 [facility] 05/19 05:59 Order name: O2 Sat Monitoring; Complete Time: 06:20 [facility] EC:54 Rate is 54 beats/min. Rhythm is regular. QRS [place] is Normal. AR interval is normal. QRS jagdeep interval is normal. QT interval is normal. No Q waves. T waves are Normal. No ST changes noted. Clinical impression: Sinus bradycardia and No evidence of ischemia. Interpreted by me. Reviewed by me. Administered Medications: 06:17 Drug: NS 0.9% 1000 ml Route: IV; Rate: 1 bolus; Site: right antecubital; jb4 07:43 Drug: Aspirin 162 mg Route: PO; dm5 07:45 Not Given (Duplicate Order; other route used): foLIC Acid 1 mg IVPB once dm5 07:46 Drug: foLIC Acid 1 mg Route: PO; dm5 Disposition: 05/19/20 07:47 Discharged to Home. Impression: Paresthesia of skin. - Condition is Stable. - Discharge Instructions: Paresthesia, Aspirin and Your Heart, Paresthesia, [id number]. - Prescriptions for Folic Acid 1 mg Oral Tablet - take 1 tablet by ORAL route once daily; 20 tablet. - Medication Reconciliation Form, Thank You Letter, Antibiotic Education, Prescription Opioid Use form. - Follow up: Private Physician; When: 2 - 3 days; Reason: Recheck today's complaints, Continuance of care, Re-evaluation by your physician. Follow up: Jorge Salvador; When: 2 - 3 days; Reason: Recheck today's complaints, Re-evaluation by your physician. - Problem is new. - Symptoms have improved. Signatures: Dispatcher [employer] EDWY Caitlin Oliveira, RN RN dm5 Selvin Henry MD MD cha Bryson, James, RN RN jb4 Flakito Goodwin, RN RN jl7 Orville Holliday, RN RN mg2 Corrections: (The following items were deleted from the chart) 08:31 07:47 05/19/2020 07:47 Discharged to Home. Impression: Paresthesia of skin. Condition jl7 is Stable. Discharge Instructions: Paresthesia, Aspirin and Your Heart, Paresthesia, [id number]. Prescriptions for Folic Acid 1 mg Oral Tablet - take 1 tablet by ORAL route once daily; 20 tablet. and Forms are Medication Reconciliation Form, Thank You Letter, Antibiotic Education, Prescription Opioid Use. Follow up: Private Physician; When: 2 - 3 days; Reason: Recheck today's complaints, Continuance of care, Re-evaluation by your physician. Follow up: Jorge Salvador; When: 2 - 3 days; Reason: Recheck today's complaints, Re-evaluation by your physician. Problem is new. Symptoms have improved. jagdeep
[2020-05-19] MEDS ORDERED: ASPIRIN 81 MG CHEWABLE TABLET ONE (07:54)
[2020-05-19] MEDS ORDERED: FOLIC ACID 1 MG TABLET ONE (07:55)
--- NOTE | 2020-05-19 08:31 | RAD REPORT ---
EXAM DESCRIPTION: RAD - Chest Single View - 05/19/2020 7:10 am CLINICAL HISTORY: COUGH COMPARISON: Two view chest January 2016 TECHNIQUE: AP portable chest image was obtained 05/19/2020 7:10 am . FINDINGS: Lungs are clear. Heart and vasculature are normal. No measurable pleural effusion and no p neumothorax. No acute bony abnormality seen. No acute aortic finding. Nipple piercing overlies the lo wer right chest. Trachea is in the midline. IMPRESSION: No acute cardiopulmonary process. No significant change from comparison study.
--- NOTE | 2020-05-19 08:31 | RAD REPORT ---
EXAM DESCRIPTION: RAD - Lumbar Spine 3 Views - 05/19/2020 7:34 am CLINICAL HISTORY: PAIN COMPARISON: No comparisons FINDINGS: A three-view lumbar spine examination was performed. Lumbar bodies are normal in height and alignment. No fracture or acute bony process seen. No disc spa ce narrowing. No other significant findings. No pars defects identified. IMPRESSION: Negative Lumbar Spine examination.
[2020-05-19 08:49] VITALS: BP 139/91; TEMP 98.2; O2SAT 100
--- NOTE | 2020-05-19 11:44 | RAD REPORT ---
EXAM DESCRIPTION: CT - [id number] - 05/19/2020 7:08 am CLINICAL HISTORY: The patient is 29 years old and is Male; PAIN hypertension, extremity numbness TECHNIQUE: Axial computed tomography images of the head/brain and cervical spine without intravenous contrast. Sagittal and coronal reformatted images were created and reviewed. This CT exam was pe rformed using one or more of the following dose reduction techniques: automated exposure control, a djustment of the mA and/or kV according to patient size, and/or use of iterative reconstruction techn ique. COMPARISON: No relevant prior studies available. FINDINGS: Brain: Unremarkable. No hemorrhage. No significant white matter disease. No edema. Ventricles: Unremarkable. No ventriculomegaly. Skull: No acute fracture. Sinuses: Bilateral maxillary sinus mucus retention cysts. Mastoid air cells: Unremarkable as visualized. No mastoid effusion. Vertebrae: Unremarkable. No acute fracture. Normal alignment. Discs/spinal canal/neural foramina: No acute findings. No spinal canal stenosis. Soft tissues: Unremarkable. IMPRESSION: 1. No acute intracranial findings. No hemorrhage. 2. No acute findings in the cervical spine. Electronically signed by: Moira Martínez MD 05/19/2020 7:01 AM ANIMAL HUMANE AGENT SUPERVISOR Due to temporary technical issues with the PACS/Fluency reporting system, reports are being signed by the in house radiologist without review as a courtesy to ensure prompt reporting. The interpreting r adiologist is fully responsible for the content of the report.
--- NOTE | 2020-05-22 16:18 | EKG ---
Test Date: 2020-05-19 Test Time: 06:44:44 Household Appliance Repairer: JOSE ARMANDO MEASUREMENT RESULTS: Intervals: Rate: 54 WY: 188 QRSD: 98 QT: 404 QTc: 383 [place]: P: 67 WY: 188 QRS: 75 T: 42 INTERPRETIVE STATEMENTS: Sinus bradycardia with sinus arrhythmia Otherwise normal ECG Compared to ECG 02/05/2016 17:45:59 No significant changes Electronically Signed On 05-22-20 16:10:24 MINER HELPER by Paulo Silva
== END 2020-05-19 08:31 | disposition home or self-care (01) ==
LOC: ER 05:28
DX: R20.2 Paresthesia of skin (principal); I10 Essential (primary) hypertension; F17.210 Nicotine dependence, cigarettes, uncomplicated; Z91.018 Allergy to other foods; Z91.040 Latex allergy status; Z91.048 Other nonmedicinal substance allergy status
CPT/HCPCS: 36415; 70450; 71045; 72100; 72125; 80048; 80076; 83735; 84484; 85025; 85652; 86140; 93005; 99283; J7030

== ENCOUNTER 2021-07-26 12:05 | Emergency (ER) | payer SELFPAY ==
[2021-07-26 12:51] LABS: Hematocrit 44.9 % (39.6-49.0); Lymphocytes % 20.3 % (15.3-44.8); MPV 7.5 fL (7.6-11.3); RBC Red Blood Cell Count 5.02 M/uL (4.33-5.43)
[2021-07-26 12:51] LABS: Urine Blood Negative (Negative); Urine Glucose Negative (Negative); Urine Protein Negative (Negative); Urine Specific Gravity <=1.005 (1.005-1.030)
[2021-07-26 12:52] LABS: Absolute Lymphocytes (CBC) 1.8 K/uL (0.7-4.9)
--- NOTE | 2021-07-26 12:59 | RAD REPORT ---
EXAM DESCRIPTION: CT - Stone Protocol - 07/26/2021 12:50 pm CLINICAL HISTORY: Flank pain. HEMATURIA COMPARISON: Abdomen Pelvis Wo Contrast dated 07/08/2019 TECHNIQUE: Axial images were obtained without oral or IV contrast. Lack of contrast limits solid org an and vascular assessment. The [id number] spans the entirety of the system partially obscuring uppermost abdomen and lung bases. Coronal reformatted images were obtained and reviewed. All CT scans are performed using dose optimization technique as appropriate and may include automated exposure control or mA/KV adjustment according to patient size. FINDINGS: The lower lung art are clear. Imaged portions of the liver and spleen show no suspicious findings on non-contrast imaging. The panc reas and adrenal glands are normal. No pathologic lymphadenopathy in the abdomen or pelvis. No urinary tract stones or obstructive uropathy. No bowel obstruction, free air, free fluid or abscess. Normal appendix noted.Small fat containing rig ht inguinal hernia. No significant bony abnormality. IMPRESSION: No urinary tract stones or obstructive uropathy.
[2021-07-26 13:06] LABS: BUN Blood Urea Nitrogen 12 mg/dL (7-18); Bicarbonate 26 mmol/L (21-32); Glucose Level 98 mg/dL (74-106); Potassium 3.9 mmol/L (3.5-5.1); Sodium Level 141 mmol/L (136-145)
[2021-07-26 13:08] LABS: Urine Bacteria NONE SEEN /HPF (NONE SEEN); Urine RBC NONE SEEN /HPF (NONE SEEN)
--- NOTE | 2021-07-26 13:19 | ER ---
Nurse's Notes [facility] Name: Piotr Guerrero Age: 30 yrs Sex: Male : 1990 Arrival Date: 07/26/2021 Time: 12:07 Bed 13 Private MD: Diagnosis: Hematuria, unspecified-resolved Presentation: 07/26 12:11 Chief complaint: Patient states: "2 weeks ago he was urinating blood and it went away ab2 for a week and now he is urinating blood again." Pt c/o left flank cramping and burning with urination. Coronavirus screen: Vaccine status: Patient reports receiving the 2nd dose of the covid vaccine. Client denies travel out of the [place] in the last 14 days. At this time, the client does not indicate any symptoms associated with coronavirus-19. Ebola Screen: Patient negative for fever greater than or equal to 101.5 degrees Fahrenheit, and additional compatible Ebola Virus Disease symptoms Patient denies exposure to infectious person. Patient denies travel to an Ebola-affected area in the 21 days before illness onset. No symptoms or risks identified at this time. Initial Sepsis Screen: Does the patient meet any 2 criteria? No. Patient's initial sepsis screen is negative. Does the patient have a suspected source of infection? No. Patient's initial sepsis screen is negative. Risk Assessment: Do you want to hurt yourself or someone else? Patient reports no desire to harm self or others. Onset of symptoms is unknown. 12:11 Method Of Arrival: Ambulatory ab2 12:11 Acuity: DRE 3 ab2 Triage Assessment: 12:16 General: Appears in no apparent distress. uncomfortable, Behavior is calm, cooperative, ab2 appropriate for age. Pain: Complains of pain in left low back. : Reports burning with urination, pain in left flank(s). Historical: - Allergies: 12:16 Latex, Natural Rubber; ab2 12:16 Mustard; ab2 - Home Meds: 12:16 None [Active]; ab2 - PMHx: 12:16 chronic back pain; Hypertension; ab2 - PSHx: 12:16 None; ab2 - Immunization history:: Adult Immunizations up to date. - Social history:: Smoking status: Patient reports the use of cigarette tobacco products, denies chronic smoking, but will smoke occasionally, Reported history of juuling and/or vaping. Screenin:29 Abuse screen: Denies threats or abuse. Denies injuries from another. Nutritional ic1 screening: No deficits noted. Tuberculosis screening: No symptoms or risk factors identified. Fall Risk None identified. Assessment: 12:29 General: Appears uncomfortable, Behavior is calm, cooperative. Pain: Complains of pain ic1 in abdomen. Neuro: Level of Consciousness is awake, alert, obeys commands, Oriented to person, place, time, situation. Cardiovascular: Denies chest pain. Respiratory: Denies cough, shortness of breath. GI: Reports lower abdominal pain. : Reports blood in urine. EENT: No deficits noted. Derm: No deficits noted. Musculoskeletal: No deficits noted. Vital Signs: 12:11 BP 167 / 77; Pulse 83; Resp 18; Temp 99.3(TE); Pulse Ox 100% ; Weight 120.2 kg; Height ab2 6 ft. 3 in. (190.50 cm); Pain 0/10; 12:23 BP 144 / 88; Pulse 90; Resp 18; Temp 97.9; Pulse Ox 100% ; cs9 13:21 Pulse 77; Resp 18; Pulse Ox 97% on R/A; ic1 13:50 BP 127 / 84; Pulse 72; Resp 16; Pulse Ox 100% ; ic1 12:11 Body Mass Index 33.12 (120.20 kg, 190.50 cm) ab2 ED Course: 12:07 Patient arrived in ED. ds1 12:16 Triage completed. ab2 12:17 Arm band placed on right wrist. ab2 12:22 Marcia Jimenez FNP-C is PHCP. kb 12:22 Malaika Barker MD is Attending Physician. kb 12:27 Rema Garcia RN is Primary Nurse. ic1 12:29 Patient has correct armband on for positive identification. Bed in low position. Call ic1 light in reach. 12:29 No provider procedures requiring assistance completed. ic1 12:46 Inserted saline lock: 20 gauge in right antecubital area, using aseptic technique. ic1 Blood collected. 12:47 Urine Microscopic Only Sent. ic1 12:47 Basic Metabolic Panel Sent. ic1 12:47 CBC with Diff Sent. ic1 12:50 CT Stone Protocol In Process Unspecified. EDMS 13:51 IV discontinued, intact, bleeding controlled, No redness/swelling at site. Pressure ic1 dressing applied. Administered Medications: No medications were administered Outcome: 13:17 Discharge ordered by MD. stafford 13:51 Discharged to home ambulatory. ic1 13:51 Condition: stable 13:51 Discharge instructions given to patient, Instructed on discharge instructions, follow up and referral plans. Demonstrated understanding of instructions, follow-up care. 13:52 Patient left the ED. ic1 Signatures: Dispatcher [employer] EDOH Marcia Jimenez, COMMUNITY SERVICE TECHNICIAN-C COMMUNITY SERVICE TECHNICIAN-Demetria Solorio ds1 Loreto Collins cs9 Rema Garcia, RN RN ic1 Сергей Donohue
--- NOTE | 2021-07-26 13:19 | EDPHYS ---
Physician Documentation [facility] Name: Piotr Guerrero Age: 30 yrs Sex: Male : 1990 Arrival Date: 07/26/2021 Time: 12:07 Bed 13 Private MD: ED Physician Malaika Barker HPI: 07/26 13:09 This 30 yrs old Male presents to ER via Ambulatory with complaints of Blood In Urine. kb 13:09 The patient presents with urinary symptoms, hematuria. Onset: The symptoms/episode kb began/occurred 2 week(s) ago. Modifying factors: The symptoms are alleviated by nothing, the symptoms are aggravated by urinating. Associated signs and symptoms: Pertinent positives: hematuria, Pertinent negatives: abdominal pain, constipation, diarrhea, dysuria, fever, nausea, vomiting. Severity of symptoms: At their worst the symptoms were moderate, in the emergency department the symptoms are unchanged. The patient has not experienced similar symptoms in the past. The patient has not recently seen a physician. Pt reports blood in urine on 3 different occasions over the last 2 weeks. Had left flank pain a few days ago. Latest hematuria episode was today so he came to get it checked out. . Historical: - Allergies: 12:16 Latex, Natural Rubber; ab2 12:16 Mustard; ab2 - Home Meds: 12:16 None [Active]; ab2 - PMHx: 12:16 chronic back pain; Hypertension; ab2 - PSHx: 12:16 None; ab2 - Immunization history:: Adult Immunizations up to date. - Social history:: Smoking status: Patient reports the use of cigarette tobacco products, denies chronic smoking, but will smoke occasionally, Reported history of juuling and/or vaping. ROS: 13:09 Constitutional: Negative for fever, chills, and weight loss. kb 13:09 : Positive for flank pain, hematuria. 13:09 All other systems are negative. Exam: 13:09 Constitutional: This is a well developed, well nourished patient who is awake, alert, kb and in no acute distress. Head/Face: Normocephalic, atraumatic. ENT: Moist Mucous membranes Respiratory: Respirations even and unlabored. No increased work of breathing. Talking in full sentences Abdomen/GI: Soft, non-tender. No distention Back: No spinal tenderness. No costovertebral tenderness. Full range of motion. Skin: Warm, dry with normal turgor. Normal color. MS/ Extremity: Pulses equal, no cyanosis. Neurovascular intact. Full, normal range of motion. Neuro: Awake and alert, GCS 15, oriented to person, place, time, and situation. Moves all extremities. Normal gait. Psych: Awake, alert, with orientation to person, place and time. Behavior, mood, and affect are within normal limits. Vital Signs: 12:11 BP 167 / 77; Pulse 83; Resp 18; Temp 99.3(TE); Pulse Ox 100% ; Weight 120.2 kg; Height ab2 6 ft. 3 in. (190.50 cm); Pain 0/10; 12:23 BP 144 / 88; Pulse 90; Resp 18; Temp 97.9; Pulse Ox 100% ; cs9 13:21 Pulse 77; Resp 18; Pulse Ox 97% on R/A; ic1 13:50 BP 127 / 84; Pulse 72; Resp 16; Pulse Ox 100% ; ic1 12:11 Body Mass Index 33.12 (120.20 kg, 190.50 cm) ab2 MDM: 12:22 Patient medically screened. kb 13:09 Data reviewed: vital signs, nurses notes. Data interpreted: Pulse oximetry: on room air kb is 100 %. Interpretation: normal. Counseling: I had a detailed discussion with the patient and/or guardian regarding: the historical points, exam findings, and any diagnostic results supporting the discharge/admit diagnosis, lab results, radiology results, the need for outpatient follow up, a family practitioner, a urologist, to return to the emergency department if symptoms worsen or persist or if there are any questions or concerns that arise at home. 07/26 12:30 Order name: Basic Metabolic Panel; Complete Time: 13:08 kb 07/26 12:30 Order name: CBC with Diff; Complete Time: 13:04 kb 07/26 12:30 Order name: IV Saline Lock; Complete Time: 12:47 kb 07/26 12:30 Order name: Urine Microscopic Only; Complete Time: 13:08 kb 07/26 12:30 Order name: CT Stone Protocol; Complete Time: 13:04 kb 07/26 12:51 Order name: Urine Dipstick-Ancillary; Complete Time: 13:04 EDMS 07/26 12:30 Order name: Labs collected and sent; Complete Time: 12:47 kb 07/26 12:30 Order name: Urine Dipstick-Ancillary (obtain specimen); Complete Time: 12:50 kb Administered Medications: No medications were administered Disposition Summary: 07/26/21 13:17 Discharge Ordered Location: Home kb Condition: Stable kb Diagnosis - Hematuria, unspecified - resolved kb Followup: kb - With: Emergency Department - When: As needed - Reason: Worsening of condition Followup: kb - With: Private Physician - When: 2 - 3 days - Reason: Recheck today's complaints, Continuance of care, Re-evaluation by your physician Discharge Instructions: - Discharge Summary Sheet kb - Hematuria, Adult kb Forms: - Medication Reconciliation Form kb - Thank You Letter kb - Antibiotic Education kb - Prescription Opioid Use kb Signatures: Dispatcher [employer] Marcia Cardoso, GENARO DANGELOP-Сергей Cruz
[2021-07-26 14:04] VITALS: TEMP 97.9
[2021-07-26 14:07] VITALS: BP 127/84; O2SAT 100
== END 2021-07-26 13:52 | disposition home or self-care (01) ==
LOC: ER 12:05
DX: R31.9 Hematuria, unspecified (principal); I10 Essential (primary) hypertension; Z72.0 Tobacco use; Z91.018 Allergy to other foods; Z91.040 Latex allergy status; Z91.048 Other nonmedicinal substance allergy status
CPT/HCPCS: 36415; 74176; 76377; 80048; 81003; 81015; 85025; 99284

== ENCOUNTER 2022-05-31 14:39 | Emergency (ER) | payer SELFPAY ==
[2022-05-31 17:00] LABS: Absolute Lymphocytes (CBC) 1.7 K/uL (0.7-4.9); Hematocrit 43.5 % (39.6-49.0); Lymphocytes % 12.6 % (15.3-44.8); MCV 87.8 fL (80-100); MPV 7.7 fL (7.6-11.3); RBC Red Blood Cell Count 4.96 M/uL (4.33-5.43)
[2022-05-31] MEDS ORDERED: KETOROLAC 30 MG/ML INJ ONE (17:12)
[2022-05-31] MEDS ORDERED: NA CHLORIDE 0.9% 1,000 ML ONE (17:12)
[2022-05-31 17:14] LABS: Urine Blood Negative (Negative); Urine Glucose Negative (Negative); Urine Protein Negative (Negative); Urine pH 5.5 (5.0-7.0)
--- NOTE | 2022-05-31 17:18 | RAD REPORT ---
EXAM DESCRIPTION: CT - Stone Protocol - 05/31/2022 5:00 pm CLINICAL HISTORY: Left flank pain COMPARISON: Stone Protocol dated 07/26/2021 TECHNIQUE: Axial 3 mm thick images were obtained without oral or IV contrast. The [id number] span s the entirety of the system including uppermost abdomen and lung bases. All CT scans are performed using dose optimization technique as appropriate and may include automated exposure control or mA/KV adjustment according to patient size. FINDINGS: No hydronephrosis is present and no obstructing ureteral calculi. No suspicious renal mass es. Isodense masses and pyelonephritis are not excluded on a stone protocol CT scan. No significant a drenal finding. No urinary bladder suspicious finding. Imaged portions of the liver, spleen and pancreas show no suspicious findings on non-contrast imaging . No gallbladder or biliary tree abnormality identified. No suspicious bowel findings. Appendix is normal. No mass or bulky lymphadenopathy. Fat only right inguinal hernia is present. No congested or edematou s herniated fat. No free air, free fluid or inflammatory stranding. No significant bony abnormality. IMPRESSION: Negative CT stone protocol study for acute finding. Isodense masses and pyelonephritis are not excluded on stone protocol technique.
[2022-05-31 17:20] LABS: Albumin 4.2 g/dL (3.4-5.0); Bilirubin Total 0.2 mg/dL (0.2-1.0); Protein, Total 7.8 g/dL (6.4-8.2)
[2022-05-31 17:22] LABS: Potassium 3.8 mmol/L (3.5-5.1)
--- NOTE | 2022-05-31 17:33 | EDPHYS ---
Physician Documentation [facility] Name: Piotr Guerrero Age: 31 yrs Sex: Male : 1990 Arrival Date: 05/31/2022 Time: 14:41 Bed 14 Private MD: ED Physician Malaika Barker HPI: 05/31 15:49 This 31 yrs old Male presents to ER via Ambulatory with complaints of rib pain. pm1 15:49 The patient presents with pain. The symptoms are located in the lateral left mid back. pm1 Onset: The symptoms/episode began/occurred 1 week(s) ago, Became worse today. Patient reports chronic back pain since high school as result of football injury. The pain does not radiate. Associated signs and symptoms: The patient has no apparent associated signs or symptoms. The problem was sustained Physical activity at work, pulling motion. However patient is concerned it is not related to his chronic back issues and possibly kidney. Modifying factors: The patient symptoms are alleviated by remaining still, the patient symptoms are aggravated by movement. Severity of symptoms: in the emergency department the symptoms are actually worse. The patient has not experienced similar symptoms in the past. The patient has not recently seen a physician. Historical: - Allergies: 14:46 Latex, Natural Rubber; ll1 14:46 Mustard; ll1 - PMHx: 14:46 chronic back pain; Hypertension; ll1 - PSHx: 14:46 None; ll1 - Immunization history:: Client reports receiving the 2nd dose of the Covid vaccine. - Social history:: Smoking status: Reported history of juuling and/or vaping. ROS: 15:49 Constitutional: Negative for fever, chills, and weight loss, Cardiovascular: Negative pm1 for chest pain, palpitations, and edema, Respiratory: Negative for shortness of breath, cough, wheezing, and pleuritic chest pain, Abdomen/GI: Negative for abdominal pain, nausea, vomiting, diarrhea, and constipation. 15:49 MS/Extremity: Negative for injury and deformity, Skin: Negative for injury, rash, and discoloration. 15:49 Neuro: Negative for headache, weakness, numbness, tingling, and seizure. 15:49 Back: Positive for of the Lateral left mid back, Pain. 15:49 : Positive for Dark urine, Negative for hematuria, burning with urination. 15:49 All other systems are negative. Exam: 15:49 Constitutional: This is a well developed, well nourished patient who is awake, alert, pm1 and in no acute distress. Head/Face: Normocephalic, atraumatic. 15:49 Skin: Warm, dry with normal turgor. Normal color with no rashes, no lesions, and no evidence of cellulitis. MS/ Extremity: Pulses equal, no cyanosis. Neurovascular intact. Full, normal range of motion. 15:49 Cardiovascular: Exam negative for acute changes, Rate: normal, Rhythm: regular, Pulses: no pulse deficits are appreciated. 15:49 Respiratory: Exam negative for acute changes, respiratory distress, shortness of breath. 15:49 Abdomen/GI: Inspection: abdomen appears normal, Palpation: abdomen is soft and non-tender, in all quadrants. 15:49 Back: pain, that is mild, of the left mid back. 15:49 Neuro: Exam negative for acute changes, Orientation: is normal, Mentation: is normal, Motor: is normal, moves all fours, Gait: is steady, at a normal pace, without difficulty. Vital Signs: 14:47 BP 147 / 88; Pulse 92; Resp 17; Temp 99.3; Pulse Ox 99% ; Weight 115.67 kg; Height 6 ll1 ft. 3 in. (190.50 cm); Pain 6/10; 19:20 BP 140 / 82; Pulse 90; Resp 18; Pulse Ox 99% on R/A; kr3 14:47 Body Mass Index 31.87 (115.67 kg, 190.50 cm) ll1 MDM: 15:24 Patient medically screened. pm1 17:27 Data reviewed: vital signs. pm1 17:27 Differential diagnosis: chronic back pain, Pyelonephritis sprain, UTI. pm1 17:27 I considered the following discharge prescriptions or medication management in the pm1 emergency department Offered patient pain medications but he refused because he does not want any medications at all for his pain. Not even NSAIDs. 17:27 Test considered but Not performed: MRI: MRI unavailable and recommended outpatient pm1 follow up with PCP and neurosurgery . 17:27 Care significantly affected by the following chronic conditions: Chronic back pain from pm1 injury sustained as a teenager. 17:27 Counseling: I had a detailed discussion with the patient and/or guardian regarding: the pm1 historical points, exam findings, and any diagnostic results supporting the discharge/admit diagnosis, lab results, radiology results, the need for outpatient follow up, a family practitioner, a neurosurgeon, to return to the emergency department if symptoms worsen or persist or if there are any questions or concerns that arise at home. 17:27 Care significantly affected by the following Social Determinants of Health: Poor access pm1 to healthcare and/or lack of insurance, Patient without insurance and reports a deterrent to following up with neuro surgery in the past. 05/31 15:49 Order name: CBC with Diff; Complete Time: 17:24 pm1 05/31 15:49 Order name: CMP; Complete Time: 17:24 pm1 05/31 15:49 Order name: Lipase; Complete Time: 17:24 pm1 05/31 15:49 Order name: CT Stone Protocol; Complete Time: 17:24 pm1 05/31 17:15 Order name: Urine Dipstick-Ancillary; Complete Time: 17:24 EDMS 05/31 15:49 Order name: IV Saline Lock; Complete Time: 16:50 pm1 05/31 15:49 Order name: Labs collected and sent; Complete Time: 16:50 pm1 05/31 15:49 Order name: Urine Dipstick-Ancillary (obtain specimen); Complete Time: 17:39 pm1 Administered Medications: 17:25 Drug: NS 0.9% 1000 ml Route: IV; Rate: 1 bolus; Site: right antecubital; kr3 19:21 Follow up: Response: No adverse reaction; IV Status: Completed infusion; IV Intake: kr3 1000ml 17:39 Drug: Ketorolac 30 mg Route: IVP; Site: right antecubital; kr3 19:21 Follow up: Response: No adverse reaction kr3 17:54 Not Given (Patient Refused): Lidoderm Patch 5 % (700 mg/patch) 1 patches Topical once; kr3 leave on for 12 hours; cover most painful area; may cut into smaller pieces Disposition Summary: 05/31/22 17:32 Discharge Ordered Location: Home pm1 Problem: new pm1 Symptoms: have improved pm1 Condition: Stable pm1 Diagnosis - Low back pain pm1 Followup: pm1 - With: Emergency Department - When: As needed - Reason: Worsening of condition Followup: pm1 - With: Private Physician - When: 2 - 3 days - Reason: Recheck today's complaints, Continuance of care, Re-evaluation by your physician Discharge Instructions: - Discharge Summary Sheet pm1 - Chronic Back Pain pm1 - Musculoskeletal Pain pm1 - Flank Pain, Adult pm1 Forms: - Medication Reconciliation Form pm1 - Thank You Letter pm1 - Antibiotic Education pm1 - Prescription Opioid Use pm1 Prescriptions: - Cyclobenzaprine 10 mg Oral Tablet - take 1 tablet by ORAL route every 8 hours As needed; 30 tablet; Refills: 0, pm1 Product Selection Permitted - Lidoderm 5 % Topical adhesive patch,medicated - apply 1 patch by TRANSDERMAL route once daily As needed 12 hours on and 12 pm1 hours off in a 24 hour period; 30 patch; Refills: 0, Product Selection Permitted - Diclofenac Sodium 75 mg Oral tablet,delayed release (DR/EC) - take 1 tablet by ORAL route 2 times per day As needed; 30 tablet; Refills: 0, pm1 Product Selection Permitted Signatures: Dispatcher [employer] Gera Pelaez NP LEGAL RECEPTIONIST pm1 Shannon Mckeon RN RN ll1 Susi Amaya RN RN kr3
--- NOTE | 2022-05-31 17:33 | ER ---
Nurse's Notes [facility] Name: Piotr Guerrero Age: 31 yrs Sex: Male : 1990 Arrival Date: 05/31/2022 Time: 14:41 Bed 14 Private MD: Diagnosis: Low back pain Presentation: 05/31 14:47 Chief complaint: Patient states: L mid back pain for 1 day. States its from an old ll1 injury. Coronavirus screen: Vaccine status: Patient reports receiving the 2nd dose of the covid vaccine. Client denies travel out of the [place] in the last 14 days. At this time, the client does not indicate any symptoms associated with coronavirus-19. Ebola Screen: Patient denies travel to an Ebola-affected area in the 21 days before illness onset. Initial Sepsis Screen: Does the patient meet any 2 criteria? No. Patient's initial sepsis screen is negative. Does the patient have a suspected source of infection? No. Patient's initial sepsis screen is negative. Risk Assessment: Do you want to hurt yourself or someone else? Patient reports no desire to harm self or others. Onset of symptoms was May 31, 2022. 14:47 Method Of Arrival: Ambulatory ll1 14:47 Acuity: DRE 4 ll1 Triage Assessment: 14:48 General: Appears in no apparent distress. Behavior is calm, cooperative, appropriate ll1 for age. Pain: Complains of pain in L back Quality of pain is described as aching. Musculoskeletal: Reports pain in L back. Historical: - Allergies: 14:46 Latex, Natural Rubber; ll1 14:46 Mustard; ll1 - PMHx: 14:46 chronic back pain; Hypertension; ll1 - PSHx: 14:46 None; ll1 - Immunization history:: Client reports receiving the 2nd dose of the Covid vaccine. - Social history:: Smoking status: Reported history of juuling and/or vaping. Screenin:19 [facility] ED Fall Risk Assessment (Adult) History of falling in the last 3 months, kr3 including since admission No falls in past 3 months (0 pts) Confusion or Disorientation No (0 pts) Intoxicated or Sedated No (0 pts) Impaired Gait No (0 pts) Mobility Assist Device Used No (0 pt) Altered Elimination No (0 pt) Score/Fall Risk Level 0 - 2 = Low Risk Oriented to surroundings, Maintained a safe environment, Educated pt \T\ family on fall prevention, incl call for assistance when getting out of bed, Assessed \T\ reinforced patient's understanding of fall precautions, Hourly rounding (assess needs \T\ fall precautionary measures) done. 19:19 Abuse screen: Denies threats or abuse. Nutritional screening: No deficits noted. kr3 Tuberculosis screening: No symptoms or risk factors identified. Assessment: 16:50 General: Appears in no apparent distress. uncomfortable, Behavior is calm, cooperative, kr3 appropriate for age. Pain: Complains of pain in back. Neuro: Level of Consciousness is awake, alert, obeys commands, Oriented to person, place, time, situation. Cardiovascular: Patient's skin is warm and dry. Respiratory: Airway is patent Respiratory effort is even, unlabored, Respiratory pattern is regular, symmetrical. GI: Abdomen is round non-distended. : No signs and/or symptoms were reported regarding the genitourinary system. EENT: No signs and/or symptoms were reported regarding the EENT system. Derm: No signs and/or symptoms reported regarding the dermatologic system. Musculoskeletal: Circulation, motion, and sensation intact. Vital Signs: 14:47 BP 147 / 88; Pulse 92; Resp 17; Temp 99.3; Pulse Ox 99% ; Weight 115.67 kg; Height 6 ll1 ft. 3 in. (190.50 cm); Pain 6/10; 19:20 BP 140 / 82; Pulse 90; Resp 18; Pulse Ox 99% on R/A; kr3 14:47 Body Mass Index 31.87 (115.67 kg, 190.50 cm) ll1 ED Course: 14:41 Patient arrived in ED. as 14:48 Triage completed. ll1 14:48 Arm band placed on. ll1 14:50 Gera Fisher NP is PHCP. pm1 14:51 Malaika Barker MD is Attending Physician. pm1 14:55 Bed in low position. Call light in reach. Side rails up X 1. kr3 14:55 No provider procedures requiring assistance completed. kr3 15:24 Susi Amaya, TE is Primary Nurse. kr3 17:01 CT Stone Protocol In Process Unspecified. EDMS 19:09 intact, bleeding controlled, No redness/swelling at site. Pressure dressing applied. as7 19:20 IV discontinued. kr3 Administered Medications: 17:25 Drug: NS 0.9% 1000 ml Route: IV; Rate: 1 bolus; Site: right antecubital; kr3 19:21 Follow up: Response: No adverse reaction; IV Status: Completed infusion; IV Intake: kr3 1000ml 17:39 Drug: Ketorolac 30 mg Route: IVP; Site: right antecubital; kr3 19:21 Follow up: Response: No adverse reaction kr3 17:54 Not Given (Patient Refused): Lidoderm Patch 5 % (700 mg/patch) 1 patches Topical once; kr3 leave on for 12 hours; cover most painful area; may cut into smaller pieces Medication: 19:20 VIS not applicable for this client. kr3 Intake: 19:21 IV: 1000ml; Total: 1000ml. kr3 Outcome: 14:55 Discharged to home ambulatory. kr3 14:55 Condition: stable 14:55 Discharge instructions given to patient, Instructed on discharge instructions, follow up and referral plans. medication usage, Demonstrated understanding of instructions, follow-up care, medications, Prescriptions given X 3. 17:32 Discharge ordered by . pm1 19:12 Patient left the ED. kr3 Signatures: Dispatcher [employer] Aster Vasquez Patrick, NP [employer] pm1 Shannon Mckeon RN RN ll1 Susi Amaya RN RN kr3 Katherin Mcdonnell as7
[2022-05-31] MEDS ORDERED: LIDOCAINE 4% PATCH ONE (17:48)
[2022-05-31 19:16] VITALS: BP 147/88; TEMP 99.3; O2SAT 99
== END 2022-05-31 19:12 | disposition home or self-care (01) ==
LOC: ER 14:39
DX: M54.50 Low back pain, unspecified (principal); I10 Essential (primary) hypertension; Z91.018 Allergy to other foods; Z91.040 Latex allergy status; Z91.048 Other nonmedicinal substance allergy status
CPT/HCPCS: 36415; 74176; 76377; 80053; 81003; 83690; 85025; 96361; 96374; 99283; J2001; J7030